=== PATIENT | female | born 1975 | race American Indian/Alaskan Native ===

== ENCOUNTER 2018-07-08 19:13 | Emergency (ER) | payer OTHER, MEDICAID ==
[2018-07-08 19:56] LABS: ANION GAP 10.3; CHLORIDE,CL 108 mmol/L (101-111); SODIUM,NA 137 mmol/L (135-145)
[2018-07-08] MEDS ORDERED: Ketorolac 30 MG/ML SDV IM ONE (20:36)
[2018-07-08] MEDS ORDERED: Cyclobenzaprine 10 MG Tab PO ONE (20:36)
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
[2018-07-08 21:12] VITALS: BP 167/90
== END 2018-07-08 21:09 | disposition home or self-care (01) ==
LOC: DL.ED 19:13
DX: S16.1XXA Strain of muscle, fascia and tendon at neck level, initial encounter (principal); F17.210 Nicotine dependence, cigarettes, uncomplicated; I10 Essential (primary) hypertension; Z88.8 Allergy status to other drugs, medicaments and biological substances; V49.9XXA Car occupant (driver) (passenger) injured in unspecified traffic accident, initial encounter; Z79.899 Other long term (current) drug therapy
CPT/HCPCS: 36415; 70450; 71045; 72125; 80053; 85025; 96372; 99285; A9270; G0480; J1885

== ENCOUNTER 2021-07-28 01:54 | Emergency (ER) | payer SELFPAY ==
[2021-07-28] MEDS ORDERED: Acetaminophen/HYDROcodone 325-5 MG Tab PO ONE (01:55)
[2021-07-28 01:58] VITALS: BP 188/138; PULSE 116
[2021-07-28] MEDS ORDERED: fentaNYL 100 MCG/2 ML SDV IVPUSH ONE ×2 (02:32→03:56)
[2021-07-28 03:24] LABS: ANION GAP 14.7 mEq/L (7-13); CHLORIDE,CL 107 mmol/L (98-107); SODIUM,NA 140 mmol/L (136-145)
[2021-07-28 03:30] LABS: ESTIMATED GFR 108 mL/min (>=60)
[2021-07-28 04:17] LABS: AMPHETAMINES,URINE POSITIVE (NEGATIVE); BARBITURATES,URINE NEGATIVE (NEGATIVE); BENZODIAZEPINE,URINE NEGATIVE (NEGATIVE); MDMA (ECSTASY), URINE NEGATIVE (NEGATIVE); METHADONE,URINE NEGATIVE (NEGATIVE); METHAMPHETAMINES,URINE POSITIVE (NEGATIVE); OPIATES,URINE NEGATIVE (NEGATIVE); OXYCODONE,URINE NEGATIVE (NEGATIVE); PHENCYCLIDINE,URINE NEGATIVE (NEGATIVE); TCA,URINE NEGATIVE (NEGATIVE)
[2021-07-28] MEDS ORDERED: Acetaminophen/HYDROcodone 325-5 MG Tab ONE (06:32)
== END 2021-07-28 06:37 | disposition home or self-care (01) ==
LOC: DL.ED 01:54
DX: S01.01XA Laceration without foreign body of scalp, initial encounter (principal); S40.011A Contusion of right shoulder, initial encounter; S20.223A Contusion of bilateral back wall of thorax, initial encounter; S40.012A Contusion of left shoulder, initial encounter; I10 Essential (primary) hypertension; Z88.8 Allergy status to other drugs, medicaments and biological substances; Y04.0XXA Assault by unarmed brawl or fight, initial encounter
CPT/HCPCS: 12002; 36415; 70450; 72125; 73020; 73060; 73090; 80053; 80305; 80307; 81001; 85025; 87086; 96374; 96376; 99285; A9270; J3010